=== PATIENT | female | born 1965 | race Caucasian/White ===

== ENCOUNTER 2023-04-29 18:29 | Emergency (ER) | payer SELFPAY ==
[2023-04-29 18:42] VITALS: BP 143/91; PULSE 75; RESP 18; TEMP 97.9; BMI 18.5
== END 2023-04-29 20:54 | disposition home or self-care (01) ==
LOC: JERFT 18:29
PROC: 0HQFXZZ Repair Right Hand Skin, External Approach (ICD-10-PCS; principal; 2023-04-29)
DX: S61.411A Laceration without foreign body of right hand, initial encounter (principal); W25.XXXA Contact with sharp glass, initial encounter; Y28.0XXA Contact with sharp glass, undetermined intent, initial encounter; Y93.G1 Activity, food preparation and clean up; Y92.89 Other specified places as the place of occurrence of the external cause
CPT/HCPCS: 73130-TC-RT-FY; 99283-25